=== PATIENT | female | born 1995 | race African-American/Black ===

== ENCOUNTER 2020-08-08 16:29 | Emergency (ER) | payer MEDICAID, OTHER ==
[~2020-08-08] VITALS: Ht 170.2 cm; Wt 77.0 kg
[2020-08-08 18:08] LABS: CLARITY URINE CLEAR (CLEAR); COLOR URINE YELLOW (YELLOW); KETONES URINE NEGATIVE (NEGATIVE); LEUKOCYTE ESTERASE URINE 2+ (NEGATIVE); NITRITE URINE NEGATIVE (NEGATIVE); OCCULT BLOOD URINE NEGATIVE (NEGATIVE); PH URINE 6.5 (4.5-8.0); PROTEIN URINE NEGATIVE (NEGATIVE); SPECIFIC GRAVITY URINE 1.015 (1.005-1.030); UROBILINOGEN URINE 0.2 E.U./dL (0.2-1.0)
[2020-08-08 18:09] LABS: HEMATOCRIT. 41.8 % (36.0-48.0); HEMOGLOBIN. 13.8 g/dL (12.0-16.0); MEAN CORPUSCULAR HEMOGLOBIN 27.4 pg (28.0-32.0); MEAN CORPUSCULAR VOLUME 83.3 fL (81.0-99.0); MEAN PLATELET VOLUME 8.9 fl (7.4-10.4); PLATELET 185 x1000/uL (130-400); RED BLOOD CELL COUNT 5.03 mill/uL (4.2-5.4); RED CELL DISTRIBUTION WIDTH 14.2 % (11.6-14.6)
[2020-08-08 18:15] LABS: CHLORIDE 103 mEq/L (98-107)
[2020-08-08 18:22] LABS: ETHANOL BLOOD < 10 mg/dL
[2020-08-08 18:29] LABS: *BARBITURATES SCREEN URINE NEGATIVE (NEGATIVE); *BENZODIAZEPINES SCREEN URINE NEGATIVE (NEGATIVE); METHADONE URINE SCREEN NEGATIVE (NEGATIVE); OPIATES URINE SCREEN NEGATIVE (NEGATIVE); PHENCYCLIDINE URINE SCREEN NEGATIVE (NEGATIVE)
[2020-08-08 18:47] LABS: *AMPHETAMINES SCREEN URINE PRESUMTIVE POSITIVE (NEGATIVE); *COCAINE SCREEN URINE PRESUMTIVE POSITIVE (NEGATIVE); CANNABINOID URINE SCREEN PRESUMTIVE POSITIVE (NEGATIVE)
[2020-08-08] MEDS ORDERED: RISPERIDONE 1MG TABLET PO SCH (20:30)
[2020-08-08] MEDS ORDERED: LORAZEPAM 1MG TABLET PO ONE (20:30)
[2020-08-08 21:08] LABS: PLATELET ESTIMATE NORMAL
[2020-08-08] MEDS ORDERED: NITROFURANTOIN 100MG M/M CAPSULE PO ONE (21:15)
[2020-08-09] MEDS ORDERED: NITROFURANTOIN 100MG M/M CAPSULE PO NR (06:15)
[2020-08-10] MEDS: NITROFURANTOIN 100MG M/M CAPSULE PO SCH ×3 (00:27→17:46)
[2020-08-10] MEDS: RISPERIDONE 1MG TABLET PO SCH ×2 (00:27→09:40)
[2020-08-11] MEDS: NITROFURANTOIN 100MG M/M CAPSULE PO SCH ×2 (08:32→17:47)
[2020-08-11] MEDS: RISPERIDONE 1MG TABLET PO SCH (08:32)
[2020-08-12] MEDS: RISPERIDONE 1MG TABLET PO SCH (09:00)
[2020-08-12] MEDS: NITROFURANTOIN 100MG M/M CAPSULE PO SCH (09:15)
[2020-08-12 10:50] VITALS: BP 137/77
== END 2020-08-12 11:00 ==
LOC: ER 16:29
DX: R45.851 Suicidal ideations (principal); R45.1 Restlessness and agitation; F20.0 Paranoid schizophrenia; F14.10 Cocaine abuse, uncomplicated; F15.10 Other stimulant abuse, uncomplicated; F12.10 Cannabis abuse, uncomplicated; N30.90 Cystitis, unspecified without hematuria; Z73.6 Limitation of activities due to disability; Z75.1 Person awaiting admission to adequate facility elsewhere
CPT/HCPCS: 36415; 80053; 80305; 80320; 81003; 81025; 85025; 93005; 99285; G0480